=== PATIENT | male | born 2000 | race Caucasian/White ===

== ENCOUNTER 2020-07-22 20:49 | Emergency (ER) | payer OTHER ==
--- NOTE | 2020-07-22 21:51 | EDM.PDOC ---
ED HPI GENERAL MEDICAL PROBLEM - General Chief Complaint: Burn Stated Complaint: CHEMICAL BURN Time Seen by Provider: 07/22/20 21:30 Source of Information: Reports: Patient History Limitations: Reports: No Limitations - History of Present Illness INITIAL COMMENTS - FREE TEXT/NARRATIVE: Patient presented to the ED because of burn from a lye 4 days ago while working at [employer]. He sustained first degree burn in both inner thighs. He rate his pain 7/10, and is taking tylenol for pain. Treatments POWERHOUSE TENDER: Reports: Acetaminophen Bilateral thighs, knees & R calf Pain Score (Numeric/FACES): 6 - Related Data Allergies Allergy/AdvReac Type Severity Reaction Status Date / Time nickel Allergy Other Verified 07/22/20 21:24 Home Meds: Home Meds Bacitracin 1 gm TP BID #60 oint...g. 07/22/20 [Rx] Ibuprofen 800 mg PO TID PRN #30 tablet 07/22/20 [Rx] Past Medical History HEENT History: Reports: Other (See Below) Other HEENT History: hx tonsil stones Neurological History: Reports: Concussion Endocrine/Metabolic History: Reports: Obesity/BMI 30+ Social & Family History - Family History Family Medical History: No Pertinent Family History - Tobacco Use Tobacco Use Status *Q: Current Some Day Tobacco User Years of Tobacco use: 2 Packs/Tins Daily: 0.1 - Caffeine Use Caffeine Use: Reports: Soda - Recreational Drug Use Recreational Drug Use: No ED ROS GENERAL - Review of Systems Review Of Systems: See Below Constitutional: Reports: No Symptoms HEENT: Reports: No Symptoms Respiratory: Reports: No Symptoms Cardiovascular: Reports: No Symptoms Endocrine: Reports: No Symptoms GI/Abdominal: Reports: No Symptoms : Reports: No Symptoms Musculoskeletal: Reports: No Symptoms Skin: Reports: Wound, Other Neurological: Reports: No Symptoms Psychiatric: Reports: No Symptoms ED EXAM, SKIN/RASH Exam: See Below Exam Limited By: No Limitations General Appearance: Alert, No Apparent Distress Eye Exam: Bilateral Eye: PERRL Ears: Normal External Exam, Normal Canal, Hearing Grossly Normal Nose: Normal Inspection, Normal Mucosa, No Blood Throat/Mouth: Normal Inspection, Normal Lips, Normal Teeth Head: Atraumatic, Normocephalic Neck: Normal Inspection, Supple, Non-Tender, Full Range of Motion Respiratory/Chest: No Respiratory Distress, Lungs Clear, Normal Breath Sounds, No Accessory Muscle Use, Chest Non-Tender Cardiovascular: Normal Peripheral Pulses, Regular Rate, Rhythm, No Edema, No Gallop, No JVD, No Murmur, No Rub GI/Abdominal: Normal Bowel Sounds, Soft, Non-Tender, No Organomegaly, No Distention, No Abnormal Bruit, No Mass Back Exam: Normal Inspection, Full Range of Motion Extremities: Normal Inspection, Normal Range of Motion, Non-Tender Neurological: Alert Skin: Warm Location, Skin: Other (first degree burn -both inner thighs) Course - Vital Signs Text/Narrative:: Ibuprofen 800 mg PO x1 Last Recorded V/S: Last Vital Signs Temp 36.6 C 07/22/20 21:07 Pulse 77 07/22/20 21:07 Resp 18 07/22/20 21:07 BP 142/77 H 07/22/20 21:07 Pulse Ox 100 07/22/20 21:07 - Orders/Labs/Meds Meds: Medications Discontinued Medications Generic Name Dose Route Start Last Admin Trade Name Freq PRN Reason Stop Dose Admin Acetaminophen 1,000 mg 07/22/20 21:46 07/22/20 21:57 Tylenol Extra Strength PO 07/22/20 21:47 Not Given NOW STA Ibuprofen 800 mg 07/22/20 21:46 07/22/20 21:57 Motrin PO 07/22/20 21:47 800 mg NOW STA Administration Departure - Departure Time of Disposition: 21:50 Disposition: Home, Self-Care 01 Condition: Good Clinical Impression: Chemical burn - Discharge Information Prescriptions: Bacitracin 1 gm TP BID #60 oint...g. Ibuprofen 800 mg PO TID PRN #30 tablet PRN Reason: Pain Instructions: Chemical Burn, Adult, [id number] Referrals: PCP,None [Primary Care Provider] - Forms: ED Department Discharge Additional Instructions: Please read discharge instructions on chemical james Take Ibuprofen 800 mg with tylenol 1000 mg every 8 hours as needed for pain Apply bacitracin ointment to affected mikaela of your skin twice daily for 2 weeks Follow up as needed Sepsis Event Note (ED) - Evaluation Sepsis Screening Result: No Definite Risk - Focused Exam Vital Signs: Vital Signs Temp Pulse Resp BP Pulse Ox 07/22/20 21:07 36.6 C 77 18 142/77 H 100
[2020-07-22] MEDS: Acetaminophen 500 MG Tab PO STA (21:57)
[2020-07-22] MEDS: Ibuprofen 800 MG Tab PO STA (21:57)
== END 2020-07-22 22:02 | disposition home or self-care (01) ==
LOC: FB.ED 20:49
DX: T54.3X1A Toxic effect of corrosive alkalis and alkali-like substances, accidental (unintentional), initial encounter (principal); T24.512A Corrosion of first degree of left thigh, initial encounter; Z91.048 Other nonmedicinal substance allergy status; E66.9 Obesity, unspecified; Z72.0 Tobacco use; Z68.32 Body mass index [BMI] 32.0-32.9, adult
CPT/HCPCS: 99282; 99283; A9270-GY

== ENCOUNTER 2021-05-24 15:38 | Emergency (ER) | payer OTHER ==
--- NOTE | 2021-05-24 16:21 | EDM.PDOC ---
ED HPI GENERAL MEDICAL PROBLEM - General Stated Complaint: WORK ACCIDENT Time Seen by Provider: 05/24/21 16:00 Source of Information: Reports: Patient - History of Present Illness INITIAL COMMENTS - FREE TEXT/NARRATIVE: 21-year-old gentleman was in his normal state of health and had no acute complaints when he was operating a bobcat at work and got his right leg pinned between the bobcat and a metal pipe. He states there may have been some twisting of his leg. He had immediate pain and was only barely able to bear weight on his leg immediately after. He continues to have significant pain mostly in the posterior and posterior lateral aspect of the mid to proximal right calf. Pain radiates distally into his foot. It hurts to even move his foot or his toes. - Related Data Allergies Allergy/AdvReac Type Severity Reaction Status Date / Time nickel Allergy Other Verified 07/22/20 21:24 Home Meds: Home Meds Bacitracin 1 gm TP BID #60 oint...g. 07/22/20 [Rx] Ibuprofen 800 mg PO TID PRN #30 tablet 07/22/20 [Rx] Past Medical History HEENT History: Reports: Other (See Below) Other HEENT History: hx tonsil stones Neurological History: Reports: Concussion Endocrine/Metabolic History: Reports: Obesity/BMI 30+ Social & Family History - Family History Family Medical History: No Pertinent Family History - Caffeine Use Caffeine Use: Reports: Soda Review of Systems - Review of Systems Review Of Systems: See Below Constitutional: Reports: No Symptoms Eyes: Reports: No Symptoms Ears: Reports: No Symptoms Nose: Reports: No Symptoms Mouth/Throat: Reports: No Symptoms Respiratory: Reports: No Symptoms Cardiovascular: Reports: No Symptoms GI/Abdominal: Reports: No Symptoms Genitourinary: Reports: No Symptoms Musculoskeletal: Reports: Leg Pain Skin: Reports: No Symptoms Neurological: Reports: No Symptoms Psychiatric: Reports: No Symptoms ED EXAM, GENERAL - Physical Exam Exam: See Below Exam Limited By: No Limitations General Appearance: Alert, WD/WN, No Apparent Distress Eye Exam: Bilateral Eye: EOMI Head: Atraumatic, Normocephalic Neck: Normal Inspection Respiratory/Chest: No Respiratory Distress, Lungs Clear Cardiovascular: Normal Peripheral Pulses, Regular Rate, Rhythm Peripheral Pulses: 2+: Radial (L), Radial (R), Dorsalis Pedis (L), Dorsalis Pedis (R) GI/Abdominal: Normal Bowel Sounds, Non-Tender Back Exam: Normal Inspection Extremities: Other (Erythema, bruising of the proximal to midportion of the posterior and lateral posterior aspect of the right calf with significant tenderness to palpation. The Skin is not taut. Patient is able to articulate his feet and toes. Capillary refill and pulses are intact distally) Neurological: Alert, Oriented, CN II-XII Intact, Normal Cognition Psychiatric: Normal Affect, Normal Mood Skin Exam: Cool, Other (Several superficial linear abrasions with no significant bleeding or discharge at this time along the anterior medial, posterior lateral and posterior aspects of the right calf) Course - Vital Signs Text/Narrative:: Review of x-ray shows no dislocated fracture or dislocation. After thorough cleaning and inspection the patient's abrasions are only superficial. Patient agreed to 30 mg ketorolac IM and Tdap booster. Last Recorded V/S: Last Vital Signs Temp 36.8 C 05/24/21 15:38 Pulse 96 05/24/21 15:38 Resp 18 05/24/21 15:38 BP 155/90 H 05/24/21 15:38 Pulse Ox 98 05/24/21 15:38 - Orders/Labs/Meds Orders: Active Orders 24 hr Category Date Time Status Tibia Fibula Rt [CR] Stat Exams 05/24/21 16:14 Ordered Meds: Medications Discontinued Medications Generic Name Dose Route Start Last Admin Trade Name Chente PRN Reason Stop Dose Admin Ketorolac Tromethamine 30 mg 05/24/21 17:22 Ketorolac 30 Mg/Ml Sdv IM 05/24/21 17:23 ONETIME ONE Departure - Departure Time of Disposition: 17:24 Disposition: Home, Self-Care 01 Condition: Good Clinical Impression: Traumatic ecchymosis of right lower leg - Discharge Information *PRESCRIPTION DRUG MONITORING PROGRAM REVIEWED*: Not Applicable *COPY OF PRESCRIPTION DRUG MONITORING REPORT IN PATIENT SHALOM: Not Applicable Instructions: Hematoma, [id number] Referrals: PCP,None [Primary Care Provider] - Additional Instructions: Patient advised that there may be further recommendations based on radiology review. Patient advised to ice his injury regularly and consistently and to rest, ice, elevate, compress, and alternate Tylenol and ibuprofen/NSAIDs for pain relief. Patient advised not to use any more NSAIDs until tomorrow morning. Sepsis Event Note (ED) - Focused Exam Vital Signs: Vital Signs Temp Pulse Resp BP Pulse Ox 05/24/21 15:38 36.8 C 96 18 155/90 H 98 - My Orders Last 24 Hours: My Active Orders 05/24/21 16:14 Tibia Fibula Rt [CR] Stat - Assessment/Plan Last 24 Hours: My Active Orders 05/24/21 16:14 Tibia Fibula Rt [CR] Stat
[2021-05-24] MEDS ORDERED: Ketorolac 30 MG/ML SDV IM ONE (17:22)
[2021-05-24] MEDS ORDERED: Diphtheria,Pertussis(Acell),Tetanus Vaccine 0.5 ML Syringe IM ONE (17:25)
--- NOTE | 2021-05-26 12:07 | CR ---
INDICATION: Work-related bobcat accident, most pain mid right tib/fib. RIGHT TIB/FIB: Four images of the right tibia and fibula in frontal and lateral projections revealed soft tissue swelling pretibially in the midshaft area of the tibia. No underlying fracture, dislocation or other significant bone or joint abnormality, was identified. If symptoms persist, if occult fracture site is suspected clinically, re- examination in 10 to 14 days may be helpful. MTDD
== END 2021-05-24 18:20 | disposition home or self-care (01) ==
LOC: FB.ED 15:38
DX: S80.11XA Contusion of right lower leg, initial encounter (principal); E66.9 Obesity, unspecified; Z68.33 Body mass index [BMI] 33.0-33.9, adult; Z23 Encounter for immunization; Z91.048 Other nonmedicinal substance allergy status; W23.0XXA Caught, crushed, jammed, or pinched between moving objects, initial encounter; Y92.89 Other specified places as the place of occurrence of the external cause; Y99.0 Civilian activity done for income or pay
CPT/HCPCS: 73590; 90471; 90715; 96372; 99283; J1885

== ENCOUNTER 2023-05-07 02:00 | Emergency (ER) | payer OTHER ==
[2023-05-07] MEDS ORDERED: Cephalexin 500 MG Cap PO ONE (02:01)
[2023-05-07] MEDS ORDERED: Lidocaine 2% 20 ML MDV INFILT ONE (02:01)
== END 2023-05-07 03:56 | disposition home or self-care (01) ==
LOC: FB.ED 02:00
DX: S61.312A Laceration without foreign body of right middle finger with damage to nail, initial encounter (principal); E66.9 Obesity, unspecified; Z79.899 Other long term (current) drug therapy; Z91.048 Other nonmedicinal substance allergy status; Z68.33 Body mass index [BMI] 33.0-33.9, adult; W26.8XXA Contact with other sharp object(s), not elsewhere classified, initial encounter
CPT/HCPCS: 12004; 99282; A9270